=== PATIENT | female | born 1955 | race Caucasian/White ===

== ENCOUNTER 2022-04-08 18:15 | Emergency (ER) | payer OTHER ==
--- OUTSIDE RECORDS SUMMARY | 2022-04-08 18:17 | XMS REPORT | Continuity of Care Document ---
:1955 Author Organization [facility] t Address [address] [place] [address] [address]. [address] [place] [address] Care Team Providers Name Role Phone David Bearden Primary Care Physician Roberta Lees RN Attending Clinician Unavailable Only, Ang Db Test Attending Clinician Unavailable Ondina Rajput Attending Clinician ONDINA MOSLEY Attending Clinician Unavailable Doctor Unassigned, [place] Attending Clinician Unavailable Veena Duran RN Attending Clinician Unavailable Lili Patrick Attending Clinician LILI VO Attending Clinician Unavailable Demetria Ireland RN Attending Clinician Unavailable Unknown, Attending Attending Clinician Unavailable JOHNNIE ALBERTS Attending Clinician Unavailable Therapy, Adc Covid Infusion Attending Clinician Unavailable Johnnie Alberts MD Attending Clinician David Bearden Attending Clinician Samuel Hendricks MD Attending Clinician SAMUEL HENDRICKS Attending Clinician Unavailable Lab, Adc Fam Pob I Attending Clinician Unavailable Kenisha Gee Attending Clinician KENISHA RIGGS Attending Clinician Unavailable Mando Leo Attending Clinician MANDO REILLY Attending Clinician Unavailable Payers Payer Name Policy Type Policy Number Effective Date Expiration Date S ource Problems This patient has no known problems. Allergies, Adverse Reactions, Alerts Allergy Allergy Status Severity Reaction(s) Onset Inactive Treating Comm ents Source Name Type Date Date Clinician Aspirin Propensi Active Nausea Univers ty to and/or 04-21 ity of adverse Vomiting 00:00: [place] reaction 00 Medical s Branch ASPIRIN DRUG Active N/V Univers INGREDI 04-21 ity of 00:00: [place] 00 Medical Branch NO KNOWN Drug Active Univers ALLERGIE Class ity of S [facility] Social History Social Habit Start Date Stop Date Quantity Comments Source Exposure to 2022-01-25 2022-02-04 Not sure [facility] SARS-CoV-2 (event) 00:00:00 09:04:00 Medica l Branch Sex Ass[birth year] [facility] 00:00:00 00:00:00 Medical Branch Smoking Status Start Date Stop Date Source Unknown if ever smoked [facility] Medications Ordered Filled Start Stop Current Ordering Indication Dosage Frequency Signature Comments Components Source Medication Medication Date Date Medication? Clinician (SIG) Name Name casirivimab 2020- No [id number] 1200mg 1,200 mg, Univers -imdevimab 04-21 Subcutaneo it y of (REGEN-COV 23:45: 22:26 [place], [place]CE[place]UA[place] 00 :00 1 dose, Medical injection Marilee 04/21/21 Bran ch 1,200 mg at 1845, Routine casirivimab 2020- No [id number] 1200mg 1,200 mg, Univers -imdevimab 04-21 Subcutaneo it y of (REGEN-COV 23:45: 22:26 us, ONCE, [place] (EUA[place] 00 :00 1 dose, Medical injection Marilee 04/21/21 Bran ch 1,200 mg at 1845, Routine Vital Signs Vital Name Observation Time Observation Value Comments Source Systolic blood 2021-04-21 23:11:00 109 mm[Hg] Univer sity of [facility] Diastolic blood 2021-04-21 23:11:00 74 mm[Hg] Unive [facility] Heart rate 2021-04-21 23:11:00 87 /min [facility] Body temperature 2021-04-21 23:11:00 36.44 Lita [facility] Respiratory rate 2021-04-21 23:11:00 20 /min Univ [facility] Oxygen saturation in 2021-04-21 23:11:00 95 /min [facility] Arterial blood by [facility] Pulse oximetry [place] Body height 2021-04-21 22:25:00 165.1 cm [facility] Body weight 2021-04-21 22:25:00 68.04 kg [facility] BMI 2021-04-21 22:25:00 24.96 kg/m2 [facility] Procedures Procedure Date / Time Performed Performing Clinician Sourc e ASSIGNMENT OF BENEFITS 2022-02-04 14:01:31 Doctor Unassigned, No [facility] [id number] CONSENT 2021-04-21 05:01:00 Doctor Unassigned, No Unive [facility] Encounters Start End Encounter Admission Attending Care Care Encounter Source Date/Time Date/Time Type Type Clinicians Facility Department ID 2022-02-05 2022-02-05 Letter SHONA Lees 1.2.840.114 [id number] Univers 00:00:00 00:00:00 (Out) Anetasia NATE [id number] ity of [facility] [id number] Shukri as [phone] [address] 2022-02-04 2022-02-04 Laboratory Only, Ang Db Test [facility] 1.2.8 40.114 [id number] Univers 09:00:00 09:15:00 Only [facility] 350.1.13.10 ity [facility] 4.2.7.2.686 Shukri as YAN?BLEA [phone] Ut [address] MEDICAL OFFICE BUILDING 2022-02-04 2022-02-04 Outpatient R [facility] [id number] Univers 09:00:00 09:00:00 [id number] ity [facility] 2022-02-04 2022-02-04 Outpatient R DIMITRI [facility] [id number] Univers 09:00:00 09:00:00 ONDINA holloway o f [facility] 2022-02-04 2022-02-04 Orders Doctor NAGEL 1.2.840.114 [id number] Univers 00:00:00 00:00:00 Only Unassigned, NATE [id number] ity of [place] [facility] 4.2.7.2.686 Shukri as [phone] [facility] [address] [place] 2021-07-22 2021-07-22 Letter SHONA Duran 1.2.840.114 [id number] Univers 00:00:00 00:00:00 (Out) Veena HUGHESY 350.1.13.10 it y of [facility] 4.2.7.2.686 Shukri as [phone] [facility] [address] [place] 2021-07-21 2021-07-21 Laboratory Only, Ang Db Test [facility] 1.2.8 40.114 [id number] Univers 11:51:44 12:06:44 Only Lili Vo [facility] 350.1.13.10 ity of [place] 4.2.7.2.686 Shukri as YAN?BLEA [phone] [address] MEDICAL OFFICE [facility] 2021-07-21 2021-07-21 Outpatient R [facility] [id number] Univers 12:00:00 12:00:00 [id number] ity [facility] 2021-07-21 2021-07-21 Outpatient R TAVO [facility] [id number] Univers 12:00:00 12:00:00 LILI ity [facility] 2021-04-30 2021-04-30 Telephone SHONA Ireland [id number] Univers 00:00:00 00:00:00 Demetria SULLIVAN 350.1.13.10 it y of [facility] 4.2.7.2.686 Shukri as [phone] [address] 2021-04-29 2021-04-29 Laboratory Only, Ang Db Test [facility] 1.2.8 40.114 [id number] Univers 09:04:35 09:19:35 Only Unknown, [facility] 350.1.13.10 ity of [place] 42.7.2.686 Shukri as Yan?Blea [phone] [address] Medical Office [facility] 2021-04-29 2021-04-29 Outpatient R [facility] [id number] Univers 09:00:00 09:00:00 [id number] ity of [facility] 2021-04-29 2021-04-29 Outpatient R [facility] [id number] Univers 09:00:00 09:00:00 ity of [facility] 2021-04-21 2021-04-21 Outpatient R [facility] [id number] Univers 17:00:00 17:00:00 [id number] ity of [facility] 2021-04-21 2021-04-21 Outpatient R FELIX, [facility] [id number] Univers 17:00:00 17:00:00 JOHNNIE ity [facility] 2021-04-21 2021-04-21 Nurse Therapy, Adc Covid Infusion [facility] 1.2.840.114 [id number] Univers 14:06:52 15:06:52 Visit Johnnie Alberts 350.1.13.10 ity [place]2.[place] [phone] [facility] 053 Branch 2021-04-21 2021-04-21 Orders Doctor SHONA 1.2.840.114 [id number] Univers 00:00:00 00:00:00 Only Unassigned, NATE 350.1.13.10 ity of [place] [facility] 4.2.7.2.686 Shukri as [phone] [facility] 009 Branch 2021-04-20 2021-04-20 Letter SHONA Duran 1.2.840.114 [id number] Univers 00:00:00 00:00:00 (Out) Veena SULLIVAN 350.1.13.10 it y of HOSPITAL 4.2.7.2.686 Shukri as [phone] [facility] 019 Branch 2021-04-20 2021-04-20 Telephone SHNOA Coleman [id number] Univers 00:00:00 00:00:00 David SULLIVAN 350.1.13.10 it y of [facility] 4.2.7.2.686 Shukri as [phone] [facility] [address] [place] 2021-04-18 2021-04-18 Laboratory Only, Ang Db Test [facility] 1.2.8 40.114 [id number] Univers 16:23:09 16:38:09 Only [facility] [id number] ity of [place] 4.2.7.2.686 Shukri as Yan?Blea [phone] Ut pa delarosaey [address] [facility] Office Building 2021-04-18 2021-04-18 Outpatient R [facility] [id number] Univers 16:30:00 16:30:00 [id number] ity [facility] 2021-04-18 2021-04-18 [facility] [id number] Univers 16:30:00 16:30:00 SAMUEL ity [facility] 2021-02-23 2021-02-23 Laboratory Lab, [facility] 1.2. 840.114 [id number] Univers 13:07:32 13:27:32 Only Kenisha Riggs Health 350.1.13.10 ity of [place] 4.2.7.2.686 Shukri as Professio [phone] Ut dical nal [address] [place] Office [facility] One 2021-02-23 2021-02-23 Outpatient R [facility] [id number] Univers 13:20:00 13:20:00 [id number] ity [facility] 2021-02-23 2021-02-23 [facility] [id number] Univers 13:20:00 13:20:00 KENISHA ity [facility] 2020-10-18 2020-10-18 Laboratory Lab, [facility] 1.2. 840.114 [id number] Univers 16:21:10 16:41:10 Only Mando Reilly [facility] 350.1.13.10 ity of [place] 4.2.7.2.686 Shukri as Professio [phone] Ut dical nal [address] [place] Office Building One 2020-10-18 2020-10-18 Outpatient R [facility] [id number] Univers 16:20:00 16:20:00 [id number] ity [facility] 2020-10-18 2020-10-18 Outpatient R [facility] [id number] Univers 16:20:00 16:20:00 ity of [facility] 2020-10-10 2020-10-10 Laboratory Lab, Adc Fam Pob I [facility] 1.2. 840.114 [id number] Univers 08:52:12 09:12:12 Only Tommie, Mando [facility] [id number] ity of [place] 4.2.7.2.686 Shukri as Professio [phone] [address] Office Building One 2020-10-10 2020-10-10 Outpatient R TOMMIE [facility] [id number] [facility] 09:00:00 09:00:00 MANDO holloway o f [facility] 2020-10-10 2020-10-10 Letter Doctor SHONA 1.2.840.114 [id number] Univers 00:00:00 00:00:00 (Out) Unassigned, NATE 350.1.13.10 ity of [place] [facility] 4.2.7.2.686 Shukri as [phone] [address] 2020-10-10 2020-10-10 Letter Doctor SHONA 1.2.840.114 [id number] Univers 00:00:00 00:00:00 (Out) Unassigned, NATE 350.1.13.10 ity of [place] [facility] 4.2.7.2.686 Shukri as [phone] [address] Results This patient has no known results.
[2022-04-08 18:55] LABS: Absolute Lymphocytes (CBC) 0.2 K/uL (0.7-4.9); Hematocrit 44.5 % (36.0-45.0); Lymphocytes % 1.8 % (15.3-44.8); MCV 88.4 fL (80-100); MPV 7.8 fL (7.6-11.3); RBC Red Blood Cell Count 5.04 M/uL (3.86-4.86)
[2022-04-08 19:10] LABS: Albumin 3.6 g/dL (3.4-5.0); Bilirubin Total 0.5 mg/dL (0.2-1.0); Potassium 3.7 mmol/L (3.5-5.1); Protein, Total 7.4 g/dL (6.4-8.2)
--- NOTE | 2022-04-08 19:32 | RAD REPORT ---
EXAM DESCRIPTION: US - Abdomen Exam Limited - 04/08/2022 7:11 pm CLINICAL HISTORY: ABD PAIN COMPARISON: Upper GI Series Wo KUB dated 07/03/2019 FINDINGS: The gallbladder demonstrates no gallstones. No pericholecystic fluid or gallbladder wall t hickening. The common bile duct is normal measuring 3 mm. The liver demonstrates no findings of intrahepatic biliary dilatation. IMPRESSION: Unremarkable examination.
[2022-04-08 19:48] LABS: Urine Blood Negative (Negative); Urine Glucose Negative (Negative); Urine Protein Negative (Negative); Urine Specific Gravity 1.015 (1.005-1.030); Urine pH 5.5 (5.0-7.0)
[2022-04-08] MEDS ORDERED: FAMOTIDINE 20 MG/2 ML VIAL IV ONE (19:57)
--- NOTE | 2022-04-08 20:22 | ER ---
Nurse's Notes [facility] Name: Dyan Juarez Age: 67 yrs Sex: Female : 1955 Arrival Date: 04/08/2022 Time: 18:17 Bed 13 Private MD: David Coleman V Diagnosis: Upper abdominal pain, unspecified Presentation: 04/08 18:25 Chief complaint: Intermittent RUQ pain x 3 weeks. Coronavirus screen: At this time, the client does not indicate any symptoms associated with coronavirus-19. Ebola Screen: No symptoms or risks identified at this time. Risk Assessment: Do you want to hurt yourself or someone else? Patient reports no desire to harm self or others. Onset of symptoms was March 2022. 18:25 Method Of Arrival: Ambulatory 18:25 Acuity: NATI 3 Historical: - Allergies: 18:26 Aspirin (Upset stomach); hb - Home Meds: 18:26 Diazepam Oral [Active]; hb - PMHx: 18:26 Anxiety; hb - PSHx: 18:26 None; hb - Immunization history:: Client reports having NOT received the Covid vaccine. - Social history:: Smoking status: Patient denies any tobacco usage or history of. Screenin:49 Abuse screen: Denies threats or abuse. Denies injuries from another. Nutritional jg9 screening: No deficits noted. Tuberculosis screening: No symptoms or risk factors identified. Fall Risk None identified. Assessment: 19:00 General: Appears in no apparent distress. uncomfortable, Behavior is calm, cooperative. jb4 Pain: Complains of pain in epigastric area Pain does not radiate. Pain currently is 4 out of 10 on a pain scale. Neuro: Level of Consciousness is awake, alert, obeys commands, Oriented to person, place, time, situation. Cardiovascular: Patient's skin is warm and dry. Respiratory: Airway is patent Respiratory effort is even, unlabored, Respiratory pattern is regular, symmetrical. GI: Abdomen is round non-distended, Reports upper abdominal pain. : No signs and/or symptoms were reported regarding the genitourinary system. Derm: Skin is intact, Skin is pink, warm \T\ dry. 19:50 Reassessment: Patient appears in no apparent distress at this time. Patient and/or jb4 family updated on plan of care and expected duration. Pain level reassessed. Patient is alert, oriented x 3, equal unlabored respirations, skin warm/dry/pink. 20:38 Reassessment: Patient appears in no apparent distress at this time. Patient and/or jb4 family updated on plan of care and expected duration. Pain level reassessed. Patient is alert, oriented x 3, equal unlabored respirations, skin warm/dry/pink. Vital Signs: 18:25 BP 150 / 87; Pulse 114; Resp 20; Temp 99.2(TE); Pulse Ox 97% on R/A; Weight 66.22 kg; hb Height 5 ft. 5 in. (165.10 cm); Pain 4/10; 18:45 BP 122 / 73; Pulse 89; Pulse Ox 99% on R/A; jg9 19:50 BP 119 / 78; Pulse 97; Resp 16; Pulse Ox 97% on R/A; jb4 20:15 BP 113 / 78; Pulse 91; Resp 16; Pulse Ox 97% on R/A; jb4 18:25 Body Mass Index 24.30 (66.22 kg, 165.10 cm) hb ED Course: 18:17 Patient arrived in ED. rg4 18:18 David Coleman MD is Private Physician. rg4 18:23 Izzy Rabago FNP-C [facility] kb 18:23 Sebastien Mancilla MD is Attending Physician. kb 18:26 Triage completed. hb 18:26 Arm band placed on. hb 18:29 Sonja Blake, RN is Primary Nurse. jg9 18:30 Inserted saline lock: 22 gauge in right antecubital area, using aseptic technique. jg9 Blood collected. 19:13 Abdomen Limited US In Process Unspecified. EDMS 20:41 No provider procedures requiring assistance completed. IV discontinued, intact, jb4 bleeding controlled, No redness/swelling at site. Pressure dressing applied. Administered Medications: 19:57 Drug: Pepcid (famotidine) 20 mg Route: IVP; Site: right antecubital; jb4 20:30 Follow up: Response: No adverse reaction jb4 20:35 Drug: Bentyl (dicyclomine) 20 mg Route: PO; jb4 20:41 Follow up: Response: Medication administered at discharge. jb4 Outcome: 20:21 Discharge ordered by . yang 20:41 Discharged to home ambulatory, with family. jb4 20:41 Condition: stable 20:41 Discharge instructions given to patient, Instructed on discharge instructions, follow up and referral plans. medication usage, Demonstrated understanding of instructions, follow-up care, medications, Prescriptions given X 1. 20:41 Patient left the ED. jb4 Signatures: Dispatcher [employer] EDIN Izzy Rabago, COPY HOLDER-C COPY HOLDER-CkLouise Reddy RN RN Anjelica Tapia rg4 Turner Yanes RN RN jb4 Sonja lBake RN RN jg9 Corrections: (The following items were deleted from the chart) 18:27 18:26 PMHx: None; hb hb
--- NOTE | 2022-04-08 20:22 | EDPHYS ---
Physician Documentation [facility] Name: Dyan Juarez Age: 67 yrs Sex: Female : 1955 Arrival Date: 04/08/2022 Time: 18:17 Bed 13 Private MD: David Coleman V ED Physician Sebastien Mancilla HPI: 04/08 18:46 This 67 yrs old Female presents to ER via Ambulatory with complaints of Abdominal Pain. kb 18:46 The patient presents with abdominal pain in the right upper quadrant. Onset: The kb symptoms/episode began/occurred 3 week(s) ago. The symptoms do not radiate. Associated signs and symptoms: none. The symptoms are described as intermittent. Modifying factors: The symptoms are alleviated by nothing, the symptoms are aggravated by nothing. Severity of pain: At its worst the pain was moderate in the emergency department the pain is unchanged. The patient has not experienced similar symptoms in the past. The patient has not recently seen a physician. Pt reports RUQ pain that has been intermittent for 3+ weeks. Denies n/v/d, fever, chills. Historical: - Allergies: 18:26 Aspirin (Upset stomach); hb - Home Meds: 18:26 Diazepam Oral [Active]; hb - PMHx: 18:26 Anxiety; hb - PSHx: 18:26 None; hb - Immunization history:: Client reports having NOT received the Covid vaccine. - Social history:: Smoking status: Patient denies any tobacco usage or history of. ROS: 18:46 Constitutional: Negative for fever, chills, and weight loss. kb 18:46 Abdomen/GI: Positive for abdominal pain, Negative for nausea, vomiting, and diarrhea. 18:46 All other systems are negative. Exam: 18:46 Constitutional: This is a well developed, well nourished patient who is awake, alert, kb and in no acute distress. Head/Face: Normocephalic, atraumatic. ENT: Moist Mucous membranes Cardiovascular: Regular rate and rhythm with a normal S1 and S2. No gallops, murmurs, or rubs. No pulse deficits. Respiratory: Respirations even and unlabored. No increased work of breathing. Talking in full sentences Abdomen/GI: Soft, non-tender. No distention Skin: Warm, dry with normal turgor. Normal color. MS/ Extremity: Pulses equal, no cyanosis. Neurovascular intact. Full, normal range of motion. Neuro: Awake and alert, GCS 15, oriented to person, place, time, and situation. Moves all extremities. Normal gait. Psych: Awake, alert, with orientation to person, place and time. Behavior, mood, and affect are within normal limits. Vital Signs: 18:25 BP 150 / 87; Pulse 114; Resp 20; Temp 99.2(TE); Pulse Ox 97% on R/A; Weight 66.22 kg; hb Height 5 ft. 5 in. (165.10 cm); Pain 4/10; 18:45 BP 122 / 73; Pulse 89; Pulse Ox 99% on R/A; jg9 19:50 BP 119 / 78; Pulse 97; Resp 16; Pulse Ox 97% on R/A; jb4 20:15 BP 113 / 78; Pulse 91; Resp 16; Pulse Ox 97% on R/A; jb4 18:25 Body Mass Index 24.30 (66.22 kg, 165.10 cm) hb MDM: 18:28 Patient medically screened. kb 18:45 Data reviewed: vital signs, nurses notes. Data interpreted: Pulse oximetry: on room air kb is 97 %. Interpretation: normal. 20:21 Counseling: I had a detailed discussion with the patient and/or guardian regarding: the kb historical points, exam findings, and any diagnostic results supporting the discharge/admit diagnosis, lab results, radiology results, the need for outpatient follow up, a family practitioner, to return to the emergency department if symptoms worsen or persist or if there are any questions or concerns that arise at home. 04/08 18:28 Order name: CBC with Diff kb 04/08 18:28 Order name: CMP; Complete Time: 19:12 kb 04/08 18:28 Order name: Lipase; Complete Time: 19:12 kb 04/08 18:28 Order name: Abdomen Limited US; Complete Time: 19:33 kb 04/08 19:22 Order name: Manual Differential EDMS 04/08 19:48 Order name: Urine Dipstick-Ancillary; Complete Time: 19:49 EDMS 04/08 18:28 Order name: IV Saline Lock; Complete Time: 19:01 kb 04/08 18:28 Order name: Labs collected and sent; Complete Time: 19:01 kb 04/08 18:28 Order name: Urine Dipstick-Ancillary (obtain specimen); Complete Time: 19:49 kb Administered Medications: 19:57 Drug: Pepcid (famotidine) 20 mg Route: IVP; Site: right antecubital; jb4 20:30 Follow up: Response: No adverse reaction jb4 20:35 Drug: Bentyl (dicyclomine) 20 mg Route: PO; jb4 20:41 Follow up: Response: Medication administered at discharge. jb4 Disposition: 04/09 17:26 Co-signature as Attending Physician, Sebastien Mancilla MD. rn Disposition Summary: 04/08/22 20:21 Discharge Ordered Location: Home kb Condition: Stable kb Diagnosis - Upper abdominal pain, unspecified kb Followup: kb - With: Emergency Department - When: As needed - Reason: Worsening of condition Followup: kb - With: Private Physician - When: 2 - 3 days - Reason: Recheck today's complaints, Continuance of care, Re-evaluation by your physician Discharge Instructions: - Discharge Summary Sheet kb - Abdominal Pain, Adult, [id number]-Iyvl kb Forms: - Medication Reconciliation Form kb - Thank You Letter kb - Antibiotic Education kb - Prescription Opioid Use kb Prescriptions: - dicyclomine 20 mg Oral Tablet - take 1 tablet by ORAL route 4 times per day As needed; 20 tablet; Refills: 0, kb Product Selection Permitted Signatures: Dispatcher [employer] EDMD Izzy Rabago, SAP GRC SECURITY-C SAP GRC SECURITY-Sebastien Chambers MD MD rn Baxter, Heather, RN RN Turner Arcos RN RN jb4 Corrections: (The following items were deleted from the chart) 04/08 18 18:26 PMHx: None; hb hb
[2022-04-08 20:36] LABS: Blood Morphology Comment NOT SEEN (NOT SEEN); Platelet Estimate ADEQ
[2022-04-08] MEDS ORDERED: DICYCLOMINE HCL 10 MG CAP ONE (20:39)
[2022-04-08 22:56] VITALS: TEMP 99.2
[2022-04-08 23:19] VITALS: O2SAT 97
[2022-04-08 23:28] VITALS: BP 113/78
== END 2022-04-08 20:41 | disposition home or self-care (01) ==
LOC: ER 18:15
DX: R10.11 Right upper quadrant pain (principal); F41.9 Anxiety disorder, unspecified; Z88.6 Allergy status to analgesic agent
CPT/HCPCS: 36415; 76705; 80053; 81003; 83690; 85025; 96374; 99284